=== PATIENT | female | born 1965 | race African-American/Black ===

== ENCOUNTER 2023-04-06 14:41 | Emergency (ER) | payer OTHER, MEDICAID ==
[~2023-04-06] VITALS: Ht 162.6 cm; Wt 91.0 kg
[~2023-04-06 14:41] MED LIST: VERA180T60
[2023-04-06 14:56] VITALS: BP 205/110; PULSE 68; RESP 19; TEMP 98.3; O2SAT 100
[2023-04-06] MEDS ORDERED: NAPR-1176 MT (16:54)
== END 2023-04-06 17:48 | disposition home or self-care (01) ==
LOC: ER 14:41
DX: M25.562 Pain in left knee (principal); D64.9 Anemia, unspecified; I10 Essential (primary) hypertension; Z98.890 Other specified postprocedural states
CPT/HCPCS: 99283; 73560; L1830